=== PATIENT | male | born 1950 | race Caucasian/White ===

== ENCOUNTER 2017-09-16 03:52 | Outpatient (CLI) | payer OTHER, MEDICARE ==
[~2017-09-16 03:52] MED LIST: ATOR10TA87 PO; CLOP75TA35 PO; FENO130C8 PO; GLIP10TA11 PO; LISI1TAB11 PO; NEBI10TA2 PO; SERT100T10 PO; VERA240T PO
== END 2017-09-16 23:59 | disposition home or self-care (01) ==
LOC: DIABETIC 03:52
PROVIDERS: ATTEND Specialist
DX: E11.65 Type 2 diabetes mellitus with hyperglycemia (principal); I10 Essential (primary) hypertension
CPT/HCPCS: G0108

== ENCOUNTER 2023-06-08 09:41 | Outpatient (CLI) | payer OTHER ==
[~2023-06-08 09:41] MED LIST changes: +CLOP75TA34 PO; -CLOP75TA35 PO; +FENO130C14 PO; -FENO130C8 PO; -LISI1TAB11 PO; +LISI1TAB51 PO; +SERT-434 PO; -SERT100T10 PO
[2023-06-08 10:18] LABS: BILIRUBIN,URINE NEGATIVE (Neg); CLARITY,URINE CLEAR (Clear); COLOR,URINE YELLOW (Yellow); GLUCOSE, URINE NEGATIVE (Neg); KETONES,URINE NEGATIVE (Neg); LEUKOCYTE ESTERASE ,URINE NEGATIVE (Neg); NITRITES, URINE NEGATIVE (Neg); OCCULT BLOOD,URINE NEGATIVE (Neg); PROTEIN,URINE NEGATIVE (Neg); UROBILINOGEN,URINE 0.2 E.U/dL (0.2-1.0)
[2023-06-08 10:25] LABS: UA COLLECTION TYPE CLN CATCH MIDSTREAM
[2023-06-08 10:36] LABS: ALANINE AMINOTRANSFERASE 24 U/L (12-78); ALBUMIN 3.8 G/DL (3.4-5.0); ALBUMIN/GLOBULIN RATIO 1.3 (1.1-1.5); ALKALINE PHOSPHATASE 77 IU/L (46-116); ANION GAP 10 (8-16); ASPARTATE AMINO TRANSFERASE 22 U/L (10-37); BILIRUBIN,TOTAL 0.5 MG/DL (0.1-1.0); BLOOD UREA NITROGEN 32 MG/DL (7-18); BUN/CREATININE RATIO 21.2 (10.0-20.0); CALCIUM 9.2 MG/DL (8.5-10.1); CHLORIDE 103 MMOL/L (99-107); CREATININE 1.51 MG/DL (0.60-1.10); GLUCOSE 166 MG/DL (70-104); SODIUM 137 MMOL/L (135-145); TOTAL CARBON DIOXIDE 24.5 MMOL/L (24-32); TOTAL PROTEIN 6.8 G/DL (6.4-8.2); eGFR 46 ML/MIN
== END 2023-06-08 23:59 | disposition home or self-care (01) ==
LOC: CARD DIAG 09:41
PROVIDERS: ATTEND Chiropractor
DX: I08.8 Other rheumatic multiple valve diseases (principal); E11.9 Type 2 diabetes mellitus without complications
CPT/HCPCS: 36415; 80053; 81003; 93306

== ENCOUNTER 2025-01-16 11:58 | Outpatient (CLI) | payer MEDICARE ==
[~2025-01-16 11:58] MED LIST changes: -GLIP10TA11 PO; +GLIP10TA18 PO; +NEBI10TA10 PO; -NEBI10TA2 PO
--- NOTE | 2025-01-17 14:47 | RADIOLOGY REPORT ---
CT CT LUMBAR SPINE Indication: SPONDYLOSIS W/O MYELOPATHY OR RADICULOPATHY, THORACIC REGION EXAM DATE: 01/16/2025 12:29 PM COMPARISON: None TECHNIQUE: CT of the lumbar without intravenous contrast. RADIATION DOSE: CTDIvol: 35 mGy, DLP: 1219 mGy*cm FINDINGS: There is posterior intrapedicular fixation of the T10 through S1 vertebral bodies. Bilateral posterio r iliac fixation. Interbody disc spacers at L4-5 and L5-S1. There is resulting beam hardening artifac ts which obscures evaluation of the surrounding structures. Lumbar vertebral body heights maintained. Moderate to severe multilevel disc space narrowing. Severe neural foraminal stenosis L4-5, L5-S1. Moderate to severe neural foraminal stenosis at L2-3, L3-4. Moderate neural foraminal stenosis L1-2. Moderate bilateral sacroiliac degenerative joint disease. Thoracolumbar dextrocurvature. Small to moderate right pleural effusion tiny left pleural effusion. Aortic atherosclerotic disease. Enlarged retrocrural lymph node measuring 1.7 cm. IMPRESSION: 1.Postsurgical changes of the thoracic /lumbar spine, bilateral iliac bones as described. If there i s concern for infection, recommend obtaining MRI of the thoracolumbar spine with and without contrast . 2.Moderate to severe multilevel neural foraminal stenosis as described. 3.Bilateral pleural effusions, [id number]-[id number]-[id number]-left. 4.Atherosclerotic disease.
== END 2025-01-16 23:59 | disposition home or self-care (01) ==
LOC: RAD 11:58
PROVIDERS: ATTEND Anesthesiology
DX: M48.07 Spinal stenosis, lumbosacral region (principal); M54.16 Radiculopathy, lumbar region; M47.814 Spondylosis without myelopathy or radiculopathy, thoracic region; Z98.1 Arthrodesis status; J90 Pleural effusion, not elsewhere classified; I70.0 Atherosclerosis of aorta; R59.0 Localized enlarged lymph nodes
CPT/HCPCS: 72131